=== PATIENT | female | born 1960 | race Caucasian/White ===

== ENCOUNTER 2021-09-27 14:11 | Inpatient (IN) | payer MEDICARE, OTHER ==
[~2021-09-27] VITALS: Ht 149.9 cm; Wt 73.5 kg
[2021-09-27] MEDS ORDERED: TRAZODONE HCL 50MG TABLET PO STA (14:42)
[2021-09-27] MEDS ORDERED: PANTOPRAZOLE 40MG DR TABLET PO STA (14:42)
[2021-09-27] MEDS ORDERED: QUETIAPINE FUMARATE 50MG TABLET PO STA (14:42)
[2021-09-27] MEDS ORDERED: MAGNESIUM/ALUMINUM HYDROXIDE/SIMETHICONE 30ML UDC PO ONE (14:45)
[2021-09-27 15:18] LABS: CLARITY URINE CLEAR (CLEAR); COLOR URINE YELLOW (YELLOW); KETONES URINE TRACE (NEGATIVE); LEUKOCYTE ESTERASE URINE NEGATIVE (NEGATIVE); NITRITE URINE NEGATIVE (NEGATIVE); OCCULT BLOOD URINE NEGATIVE (NEGATIVE); PROTEIN URINE NEGATIVE (NEGATIVE); SPECIFIC GRAVITY URINE 1.033 (1.005-1.030); UROBILINOGEN URINE 0.2 E.U./dL (0.2-1.0)
[2021-09-27 15:30] LABS: BASOPHILS % 0.8 % (0.0-2.0); EOSINOPHILS % 0.1 % (0.0-5.0); HEMATOCRIT. 38.2 % (36.0-48.0); HEMOGLOBIN. 12.8 g/dL (12.0-16.0); LYMPHOCYTES % 20.4 % (20.0-50.0); MEAN CORPUSCULAR HEMOGLOBIN 28.2 pg (28.0-32.0); MEAN CORPUSCULAR VOLUME 84.1 fL (81.0-99.0); MEAN PLATELET VOLUME 8.4 fl (7.4-10.4); MONOCYTES % 8.3 % (2.0-8.0); NEUTROPHILS % 70.4 % (40.0-76.0); PLATELET 401 x1000/uL (130-400); RED BLOOD CELL COUNT 4.54 mill/uL (4.2-5.4); RED CELL DISTRIBUTION WIDTH 14.2 % (11.6-14.6)
[2021-09-27 15:36] LABS: CHLORIDE 98 mEq/L (98-107)
[2021-09-27 15:40] LABS: ETHANOL BLOOD < 10 mg/dL
[2021-09-27 15:51] LABS: *AMPHETAMINES SCREEN URINE NEGATIVE (NEGATIVE); *BARBITURATES SCREEN URINE NEGATIVE (NEGATIVE); *BENZODIAZEPINES SCREEN URINE NEGATIVE (NEGATIVE); *COCAINE SCREEN URINE NEGATIVE (NEGATIVE)
[2021-09-27 15:52] LABS: PHENCYCLIDINE URINE SCREEN NEGATIVE (NEGATIVE)
[2021-09-27 15:53] LABS: OPIATES URINE SCREEN PRESUMTIVE POSITIVE (NEGATIVE)
[2021-09-27] MEDS ORDERED: SODIUM CHLORIDE 0.9% 1,000 ML IV ONE ×2 (16:00→16:30)
[2021-09-27 16:01] LABS: CANNABINOID URINE SCREEN NEGATIVE (NEGATIVE); METHADONE URINE SCREEN NEGATIVE (NEGATIVE)
[2021-09-27] MEDS ORDERED: LORAZEPAM 0.5MG TABLET PO ONE (16:30)
[2021-09-27 17:02] LABS: BG BASE EXCESS -6.1 mmol/L (-2.0-2.0); BG DEOXYHEMOGLOBIN 2.8 % (0.0-5.0); BG FRACTION INSPIRED OXYGEN 21; BG HCO3 ACT 17.6 mmol/L (22.0-26.0); BG METHEMOGLOBIN 0.3 % (0.0-1.5); BG OXYGEN SATURATION 97.2 % (92.0-98.5); BG OXYHEMOGLOBIN 96.9 % (94.0-97.0); BG PCO2 29.3 mmHg (35.0-45.0); BG PH 7.396 (7.350-7.450); BG PO2 101.4 mmHg (75.0-100.0); BG SAMPLE SITE RIGHT RADIAL; BG TOTAL HEMOGLOBIN 11.6 g/dL (12.0-18.0); BG VENT MODE ROOM AIR
[2021-09-27] MEDS ORDERED: INSULIN REGULAR (HUMULIN R) 300UNITS/3ML VIAL SUBCUT ONE (19:15)
[2021-09-27] MEDS ORDERED: QUETIAPINE FUMARATE 50MG TABLET PO NR (23:45)
[2021-09-27] MEDS ORDERED: TRAZODONE HCL 50MG TABLET PO NR (23:45)
[2021-09-28 08:00] VITALS: BP 132/79
[2021-09-28] MEDS ORDERED: ONDANSETRON HCL 4MG/2ML INJ IV PRN (08:30)
[2021-09-28] MEDS ORDERED: DEXTROSE 50% WATER 50ML SYRINGE IV PRN (08:30)
[2021-09-28 09:49] VITALS: BP 132/79
[2021-09-28 12:00] VITALS: BP 106/50
[2021-09-28] MEDS: BLOOD SUGAR DIAGNOSTIC STRIP TEST SCH ×3 (12:42→21:45)
[2021-09-28] MEDS: INSULIN LISPRO 100 UNITS/ML SUBCUT SCH ×4 (12:50→22:08)
[2021-09-28] MEDS: ACETAMINOPHEN 325MG TABLET PO PRN (15:58)
[2021-09-28 16:00] VITALS: BP 121/71
[2021-09-28 20:00] VITALS: BP 118/74
[2021-09-28] MEDS ORDERED: INSULIN GLARGINE UD 100 UNITS/ML SYR SUBCUT SCH (22:00)
[2021-09-28] MEDS ORDERED: VENLAFAXINE HCL 75MG TABLET PO SCH (23:00)
[2021-09-28] MEDS ORDERED: QUETIAPINE FUMARATE 25MG TABLET PO SCH (23:00)
[2021-09-28] MEDS ORDERED: TRAZODONE HCL 50MG TABLET PO SCH (23:00)
[2021-09-28] MEDS ORDERED: QUET400T MT (23:04)
[2021-09-28] MEDS ORDERED: VENL225T3 MT (23:04)
[2021-09-28] MEDS ORDERED: TRAZ-252 MT (23:04)
[2021-09-28] MEDS ORDERED: QUETIAPINE FUMARATE 50MG TABLET PO SCH (23:14)
[2021-09-28] MEDS ORDERED: VENLAFAXINE HCL 37.5MG TABLET PO SCH (23:14)
[2021-09-29] VITALS: BP 123/75
[2021-09-29 02:00] VITALS: BP 123/86
[2021-09-29 04:50] VITALS: BP 134/79
[2021-09-29] MEDS: BLOOD SUGAR DIAGNOSTIC STRIP TEST SCH ×3 (06:28→21:22)
[2021-09-29] MEDS ORDERED: INSULIN LISPRO 100 UNITS/ML SUBCUT SCH (06:30)
[2021-09-29] MEDS: INSULIN LISPRO 100 UNITS/ML SUBCUT SCH ×5 (06:35→22:02)
[2021-09-29] MEDS: PANTOPRAZOLE 40MG DR TABLET PO SCH (06:57)
[2021-09-29] MEDS ORDERED: INFLUENZA VACCINE 05/PF 0.5 ML SYRINGE IM ONE (09:00)
[2021-09-29] MEDS ORDERED: PNEUMOCOCCAL 23-VAL P-SAC VAC 0.5 ML IM ONE (09:00)
[2021-09-29] MEDS: INSULIN GLARGINE UD 100 UNITS/ML SYR SUBCUT SCH ×3 (09:59→10:16)
[2021-09-29] MEDS ORDERED: TRAZ-251 PO (12:31)
[2021-09-29] MEDS ORDERED: LANTUSUD SUBCUT (12:31)
[2021-09-29] MEDS ORDERED: QUET50TA PO (12:31)
[2021-09-29] MEDS ORDERED: VENL-179 PO (12:31)
[2021-09-29 16:00] VITALS: BP 130/74
[2021-09-29 20:00] VITALS: BP 116/78
[2021-09-29] MEDS ORDERED: VENLAFAXINE HCL 37.5MG TABLET PO SCH (21:00)
[2021-09-29] MEDS: QUETIAPINE FUMARATE 50MG TABLET PO SCH (21:56)
[2021-09-29] MEDS: TRAZODONE HCL 50MG TABLET PO SCH (21:56)
[2021-09-30] VITALS: BP 138/90
[2021-09-30 04:00] VITALS: BP 140/90
[2021-09-30] MEDS: BLOOD SUGAR DIAGNOSTIC STRIP TEST SCH ×4 (06:20→21:00)
[2021-09-30] MEDS: PANTOPRAZOLE 40MG DR TABLET PO SCH (06:20)
[2021-09-30] MEDS: INSULIN LISPRO 100 UNITS/ML SUBCUT SCH ×7 (07:20→21:59)
[2021-09-30 08:16] VITALS: BP 133/72
[2021-09-30] MEDS: INSULIN GLARGINE UD 100 UNITS/ML SYR SUBCUT SCH ×2 (09:07→21:56)
[2021-09-30 12:19] VITALS: BP 139/82
[2021-09-30 15:58] VITALS: BP 117/82
[2021-09-30] MEDS: ACETAMINOPHEN 325MG TABLET PO PRN (18:06)
[2021-09-30 20:00] VITALS: BP 135/76
[2021-09-30] MEDS: QUETIAPINE FUMARATE 50MG TABLET PO SCH (21:55)
[2021-09-30] MEDS: TRAZODONE HCL 50MG TABLET PO SCH (21:55)
[2021-09-30] MEDS: VENLAFAXINE HCL 37.5MG SR CAPSULE 24HR PO SCH (22:01)
[2021-10-01] VITALS (7 sets, daily range): BP systolic 104–135; BP diastolic 50–99
[2021-10-01] MEDS: BLOOD SUGAR DIAGNOSTIC STRIP TEST SCH ×4 (06:52→21:56)
[2021-10-01] MEDS: PANTOPRAZOLE 40MG DR TABLET PO SCH (06:52)
[2021-10-01] MEDS: INSULIN LISPRO 100 UNITS/ML SUBCUT SCH ×7 (06:55→22:14)
[2021-10-01] MEDS: INSULIN GLARGINE UD 100 UNITS/ML SYR SUBCUT SCH ×2 (10:08→22:15)
[2021-10-01] MEDS: VENLAFAXINE HCL 37.5MG SR CAPSULE 24HR PO SCH (22:12)
[2021-10-01] MEDS: QUETIAPINE FUMARATE 50MG TABLET PO SCH (22:13)
[2021-10-01] MEDS: TRAZODONE HCL 50MG TABLET PO SCH (22:13)
[2021-10-02] VITALS: BP 127/75
[2021-10-02 04:00] VITALS: BP 138/78
[2021-10-02] MEDS: PANTOPRAZOLE 40MG DR TABLET PO SCH (06:37)
[2021-10-02] MEDS: INSULIN LISPRO 100 UNITS/ML SUBCUT SCH ×4 (06:40→12:50)
[2021-10-02] MEDS: BLOOD SUGAR DIAGNOSTIC STRIP TEST SCH ×2 (06:41→12:20)
[2021-10-02 08:00] VITALS: BP 117/79
[2021-10-02] MEDS: INSULIN GLARGINE UD 100 UNITS/ML SYR SUBCUT SCH (09:58)
[2021-10-02 11:51] VITALS: BP 117/74
[2021-10-02 12:00] VITALS: BP 122/67
[2021-10-02] MEDS ORDERED: METF-874 MT (13:24)
== END 2021-10-02 14:13 | disposition home or self-care (01) | DRG 638 ==
LOC: ER 14:11 → MICUSO 18:22 → 6WST 23:37 → MICUSO 23:47 → 6WST 09-28 09:39 → 6EST 09-29 14:46
PROVIDERS: ADMIT Internal Medicine; ATTEND Internal Medicine
DX: E11.65 Type 2 diabetes mellitus with hyperglycemia (principal); E87.1 Hypo-osmolality and hyponatremia; R45.851 Suicidal ideations; E66.9 Obesity, unspecified; F31.9 Bipolar disorder, unspecified; G47.00 Insomnia, unspecified; F43.10 Post-traumatic stress disorder, unspecified; G25.81 Restless legs syndrome; Z20.822 Contact with and (suspected) exposure to COVID-19; Z90.49 Acquired absence of other specified parts of digestive tract; Z79.899 Other long term (current) drug therapy; Z91.14 Patient's other noncompliance with medication regimen; Z71.3 Dietary counseling and surveillance; Z87.19 Personal history of other diseases of the digestive system; Z68.32 Body mass index [BMI] 32.0-32.9, adult
CPT/HCPCS: 36415; 36600; 80053; 80305; 80307; 80320; 80329; 81003; 82010; 82375; 82805; 82962; 83036; 85025; 90686; 90732; 99285; J1815; J7030; U0003; U0005; G0480